=== PATIENT | male | born 1935 | race Caucasian/White ===

== ENCOUNTER 2017-01-05 11:55 | Emergency (ER) | payer MEDICARE ==
[~2017-01-05] VITALS: Ht 170.2 cm; Wt 65.8 kg
[~2017-01-05 11:55] MED LIST: METO-354 PO
[2017-01-05] MEDS ORDERED: NS IV 1000 ML 1,000 ML IV ONE (12:26)
[2017-01-05] MEDS ORDERED: KETOROLAC 30 MG/ML VIAL IVP STA (12:26)
[2017-01-05] MEDS ORDERED: ONDANSETRON 4 MG/2 ML (SDV) Z0FRAN IVP ONE (12:30)
[2017-01-05 12:33] LABS: BASOPHILS % (AUTO) 0 % (0-10); EOSINOPHILS # (AUTO) 0.2 10^3/uL (0.0-0.3); EOSINOPHILS % (AUTO) 2 % (0-10); LYMPHOCYTES # (AUTO) 1.4 X 10^3 (1.0-4.0); LYMPHOCYTES % (AUTO) 11 % (12-44); MEAN CORPUSCULAR HEMOGLOBIN 31 PG (25-34); MEAN CORPUSCULAR HGB CONC 33 G/DL (32-36); MEAN CORPUSCULAR VOLUME 94 FL (80-99); MEAN PLATELET VOLUME 9.7 FL (7.4-10.4); MONOCYTES # (AUTO) 0.9 X 10^3 (0.0-1.0); MONOCYTES % (AUTO) 7 % (0-12); NEUTROPHILS # (AUTO) 10.5 X 10^3 (1.8-7.8); NEUTROPHILS % (AUTO) 81 % (42-75); PLATELET COUNT 212 10^3/uL (130-400); RED BLOOD COUNT 4.55 10^6/uL (4.35-5.85); RED CELL DISTRIBUTION WIDTH 13.2 % (10.0-14.5)
[2017-01-05 12:47] LABS: ALANINE AMINOTRANSFERASE 9 U/L (0-55); ALBUMIN 4.3 GM/DL (3.2-4.5); ANION GAP 10 MMOL/L (5-14); ASPARTATE AMINO TRANSFERASE 17 U/L (5-34); BILIRUBIN,TOTAL 0.5 MG/DL (0.1-1.0); BLOOD UREA NITROGEN 16 MG/DL (7-18); BUN/CREATININE RATIO 16; CALCIUM 9.4 MG/DL (8.5-10.1); CARBON DIOXIDE 27 MMOL/L (21-32); CHLORIDE 103 MMOL/L (98-107); CREATININE SERUM 0.97 MG/DL (0.60-1.30); GFR ESTIMATED > 60; GLUCOSE 135 MG/DL (70-105); SODIUM 140 MMOL/L (135-145); TOTAL PROTEIN 7.4 GM/DL (6.4-8.2)
--- NOTE | 2017-01-05 12:55 | ED GI ---
General Chief Complaint: Abdominal/GI Problems Stated Complaint: ABD PAIN,CONSTIPATION Nursing Triage Note: ARRIVED VIA AMB WITH COMPLAINTS CONSTIPATION FOR X3 DAYS. Sepsis Screen: No Definite Risk Source of Information: Patient, Spouse Exam Limitations: No Limitations History of Present Illness Time Seen By Provider: 12:17 Initial Comments 81 yo male patient presents to the ED with c/o constipation x3days. reports patient has a chronic h/o constipation. Patient reports pain is worse with lying down. Last c/scope was "many years ago" per . patient reports rectal bleeding today. States he has a h/o hemorrhoids with bleeding before. Timing/Duration: 2-3 Days, Getting Worse Severity/Quality: Aching, Cramping Location: Generalized Abdomen Activities at Onset: None Modifying Factors: Worsens With Other (worse with trying to defecate) Allergies and Home Medications Allergies Coded Allergies: Penicillins (Verified Allergy, Unknown, 01/05/17) egg (Verified Allergy, Unknown, 01/05/17) Home Medications Hydrocortisone/Pramoxine 30 Gm Cream.appl, 30 GM RC UD, #1 Ref 0 apply QID to hemorroids x7-10d Prescribed by: BENY MELCHOR on 01/05/17 1450 Metoclopramide Hcl 10 Mg Tab, 1 EACH PO ACHS, #120 Ref 0 Prescribed by: AMANUEL TREVIÑO on 11/26/08 2338 Polyethylene Glycol 3350 119 Gm Powder, 17 GM PO UD, #1 Ref 0 17 g po BID x3 days, then 17 g po qhs (hold for diarrhea) Prescribed by: BENY MELCHOR on 01/05/17 1450 Review of Systems Constitutional: No chills, No fever, No malaise Respiratory: Denies Cough, Denies Orthopnea, Denies Shortness of Air, Denies SOA With Exertion Cardiovascular: Denies Chest Pain, Denies Edema, Denies Lightheadedness, Denies Syncope Gastrointestinal: See HPI, Abdomen Distended, Abdominal Pain, Constipated, Denies Nausea, Denies Poor Appetite, Denies Poor Fluid Intake, Rectal Bleeding, Denies Vomiting Genitourinary: Denies Burning, Denies Frequency, Denies Flank Pain, Denies Hematuria Musculoskeletal: No back pain Skin: no symptoms reported Psychiatric/Neurological: No Symptoms Reported All Other Systems Reviewed Negative Unless Noted: Yes (Negative excepted noted.) Past Kwxdzps-Dtxnac-Ctdble Hx Patient Social History Alcohol Use: Denies Use Recreational Drug Use: No Recent Foreign Travel: No Contact w/Someone Who Travel: No Recent Infectious Disease Expo: No Surgeries History of Surgeries: Yes Surgeries: Orthopedic Respiratory History of Respiratory Disorde: Yes Respiratory Disorders: COPD Cardiovascular History of Cardiac Disorders: Yes (LEAKY VALVE) Cardiac Disorders: Coronary Artery Disease, Hypertension Genitourinary History of Genitourinary Disor: No Gastrointestinal History of Gastrointestinal Di: Yes Gastrointestinal Disorders: Chronic Constipation, Hemorrhoids Musculoskeletal History of Musculoskeletal Dis: No Endocrine History of Endocrine Disorders: No HEENT History of HEENT Disorders: No Cancer History of Cancer: No Integumentary History of Skin or Integumenta: No Reviewed Nursing Assessment Reviewed/Agree w Nursing PMH: Yes Family Medical History Significant Family History: No Pertinent Family Hx Physical Exam Vital Signs Capillary Refill : Less Than 3 Seconds General Appearance: WD/WN, no apparent distress HEENT: PERRL/EOMI, pharynx normal Neck: supple, normal inspection Respiratory: lungs clear, normal breath sounds, no respiratory distress, no accessory muscle use Cardiovascular: normal peripheral pulses, regular rate, rhythm, no edema, no murmur Peripheral Pulses: 2+ Dorsalis Pedis (R), 2+ Left Dors-Pedis (L), 2+ Radial Pulses (R), 2+ Radial Pulses (L) Gastrointestinal: distended, guarding, No rebound, tenderness (generalized tenderness) Genital/Rectal: normal rectal tone, heme positive stool, tenderness, other (2 hemorrhoids noted without active bleeding. No bright red blood noted on the glove.) Extremities: no pedal edema, normal capillary refill Back: normal inspection, no CVA tenderness Neurologic/Psychiatric: alert, normal mood/affect, oriented x 3 Skin: normal color, warm/dry Progress/Results/Core Measures Results/Orders Lab Results Laboratory Tests Test 01/05/17 12:20 01/05/17 13:25 Range/Units White Blood Count 13.0 H 4.3-11.0 10^3/uL Red Blood Count 4.55 4.35-5.85 10^6/uL Hemoglobin 14.1 13.3-17.7 G/DL Hematocrit 43 40-54 % Mean Corpuscular Volume 94 80-99 FL Mean Corpuscular Hemoglobin 31 25-34 PG Mean Corpuscular Hemoglobin Concent 33 32-36 G/DL Red Cell Distribution Width 13.2 10.0-14.5 % Platelet Count 212 130-400 10^3/uL Mean Platelet Volume 9.7 7.4-10.4 FL Neutrophils (%) (Auto) 81 H 42-75 % Lymphocytes (%) (Auto) 11 L 12-44 % Monocytes (%) (Auto) 7 0-12 % Eosinophils (%) (Auto) 2 0-10 % Basophils (%) (Auto) 0 0-10 % Neutrophils # (Auto) 10.5 H 1.8-7.8 X 10^3 Lymphocytes # (Auto) 1.4 1.0-4.0 X 10^3 Monocytes # (Auto) 0.9 0.0-1.0 X 10^3 Eosinophils # (Auto) 0.2 0.0-0.3 10^3/uL Basophils # (Auto) 0.0 0.0-0.1 10^3/uL Sodium Level 140 135-145 MMOL/L Potassium Level 4.0 3.6-5.0 MMOL/L Chloride Level 103 98-107 MMOL/L Carbon Dioxide Level 27 21-32 MMOL/L Anion Gap 10 5-14 MMOL/L Blood Urea Nitrogen 16 7-18 MG/DL Creatinine 0.97 0.60-1.30 MG/DL Estimat Glomerular Filtration Rate > 60 BUN/Creatinine Ratio 16 Glucose Level 135 H 70-105 MG/DL Calcium Level 9.4 8.5-10.1 MG/DL Total Bilirubin 0.5 0.1-1.0 MG/DL Aspartate Amino Transf (AST/SGOT) 17 5-34 U/L Alanine Aminotransferase (ALT/SGPT) 9 0-55 U/L Alkaline Phosphatase 128 40-136 U/L Total Protein 7.4 6.4-8.2 GM/DL Albumin 4.3 3.2-4.5 GM/DL Urine Color YELLOW Urine Clarity SLIGHTLY CLOUDY Urine pH 5 5-9 Urine Specific [place] 1.020 1.016-1.022 Urine Protein NEGATIVE NEGATIVE Urine Glucose (UA) NEGATIVE NEGATIVE Urine Ketones NEGATIVE NEGATIVE Urine Nitrite NEGATIVE NEGATIVE Urine Bilirubin NEGATIVE NEGATIVE Urine Urobilinogen NORMAL NORMAL MG/DL Urine Leukocyte Esterase 1+ H NEGATIVE Urine RBC (Auto) 3+ H NEGATIVE Urine RBC NONE /HPF Urine WBC NONE /HPF Urine Squamous Epithelial Cells RARE /HPF Urine Crystals NONE /LPF Urine Bacteria NEGATIVE /HPF Urine Casts PRESENT /LPF Urine Hyaline Casts RARE /LPF Urine Mucus NEGATIVE /LPF Urine Culture Indicated NO My Orders Orders - BENY MELCHOR Saline Lock/Iv-Start (01/05/17 12:26) Fecal Occult Bedside (01/05/17 12:26) Cbc With Automated Diff (01/05/17 12:26) Comprehensive Metabolic Panel (01/05/17 12:26) Acute Abd Series (01/05/17 12:26) Ketorolac Injection (Toradol Injection) (01/05/17 12:26) Ns Iv 1000 Ml (Sodium Chloride 0.9%) (01/05/17 12:26) Ondansetron Injection (Zofran Injectio (01/05/17 12:30) Ct Abdomen/Pelvis W (01/05/17 13:44) Iohexol Injection (Omnipaque 350 Mg/Ml 1 (01/05/17 13:45) Ns (Ivpb) (Sodium Chloride 0.9% Ivpb Bag (01/05/17 13:45) Pharmacy Communication (Pharmacy Communi (01/05/17 13:45) Morphine Injection (Morphine Injection (01/05/17 15:29) Lidocaine 2% (Urojet) (Xylocaine Urojet) (01/05/17 15:30) Bisacodyl Suppository (Dulcolax Supposit (01/05/17 15:30) Ua Culture If Indicated (01/05/17 15:46) Iv Push Wire Loop Machine Operator Ed (01/05/17 ) Medications Given in ED Vital Signs/I&O Blood Pressure Mean: 112 Point of Care Testing Fecal Occult: Negative Diagnostic Imaging Diagonstic Imaging: Xray Plain Films/CT/US/NM/MRI: abdomen Comments FINDINGS: No focal airspace disease in the visible lungs. No pleural effusion or pneumothorax. Normal cardiomediastinal silhouette. Summation shadow of the patient's first ribs and degenerative changes are present in the lung apices. No free intraperitoneal air. Nonobstructive bowel gas pattern. Moderate to large amount of colonic stool is present. Degenerative changes in the lumbar spine. IMPRESSION: 1. No acute cardiopulmonary process. 2. Nonobstructive bowel gas pattern. Moderate volume of colonic stool should correlate with patient's reported constipation. Dictated on workstation # [id number] Reviewed: Reviewed by Me (radiology report reviewed by me) Diagonstic Imaging: CT Plain Films/CT/US/NM/MRI: abdomen, pelvis Comments FINDINGS: Lower chest: The lung bases are clear. No pericardial or pleural effusion. Peritoneum: No free intraperitoneal air or fluid. Liver and biliary system: The liver is normal. The gallbladder is normal. No biliary duct dilation. Spleen and Pancreas: Spleen is normal. The pancreas enhances normally without mass lesion or peripancreatic inflammatory changes. Adrenals: Normal. tract: The kidneys enhance normally without suspicious mass or obstruction. Exophytic cyst in the lower pole of the right kidney measures 4.5 x 3.6 cm. Urinary bladder is distended without wall thickening. Prostate is not enlarged. GI tract: Stomach is decompressed. No bowel obstruction. No pericolonic inflammatory changes. There is a large volume of stool throughout the colon, greatest in the rectosigmoid colon. Mild soft tissue induration within the perirectal fat can be seen with fecal impaction. Vasculature and Lymph nodes: Normal caliber aorta with extensive atherosclerotic plaquing. No abdominal or pelvic lymphadenopathy. Musculoskeletal: No concerning osseous lesion. IMPRESSION: 1. Large volume of colonic stool with a significant stool burden in the rectum. Clinical correlation for fecal impaction is advised. 2. No bowel obstruction or acute inflammatory process within the abdomen. Dictated on workstation # [id number] Reviewed: Reviewed by Me (radiology report reviewed by me) Departure Communication (Admissions) Progress Notes All laboratory findings, diagnostic study findings, and plan for discharge discussed with the patient. Discharge to home with 2 Dulcolax suppositories. Patient to use stool softeners, MiraLAX, and magnesium citrate for residual constipation. All return precautions were discussed with the patient as described in the discharge instructions of this report. Patient voices understanding and agrees with the treatment plan. Impression Impression: Primary Impression: Fecal impaction in rectum Additional Impressions: Constipation Qualified Codes: K59.01 - Slow transit constipation Bleeding hemorrhoids Rectal pain Disposition: HOME, SELF-CARE Condition: Improved Departure-Patient Inst. Decision time for Depature: 14:47 Referrals: GAMALIEL MURILLO DO NO,LOCAL PHYSICIAN (PCP) Primary Care Physician Patient Instructions: Constipation, Adult (DC) Add. Discharge Instructions: All discharge instructions reviewed with patient and/or family. Voiced understanding. Medications as instructed. Tylenol Extra Strength over-the- counter as directed for pain. Eating high fiber diet. Magnesium citrate one bottle followed by 8 ounces of fluids for severe constipation x 1 dose. Dulcolax 10 mg by mouth daily as needed for severe constipation. Drink plenty of fluids. Follow-up with your family practitioner for recheck as an outpatient. Follow-up with Dr. Murillo or the general surgeon of your choice for possible need of colonoscopy. Call for appointment time. Return to the emergency department for worsened pain, fever, abdominal swelling, vomiting, rectal bleeding, or any other concerns. Scripts Polyethylene Glycol 3350 (Miralax) 119 Gm Powder 17 GM PO UD, #1 EA 0 Refills 17 g po BID x3 days, then 17 g po qhs (hold for diarrhea) Prov: BENY MELCHOR 01/05/17 Hydrocortisone/Pramoxine (Analpram Hc 2.5% Cream) 30 Gm Cream.appl 30 GM RC UD, #1 EA 0 Refills apply QID to hemorroids x7-10d Prov: BENY MELCHOR 01/05/17 Work/School Note: [employer] BENY MELCHOR Jan 05, 2017 12:55
--- NOTE | 2017-01-05 13:21 | Diagnostic Imaging Report ---
INDICATION: Nausea and constipation. COMPARISON: None available. FINDINGS: No focal airspace disease in the visible lungs. No pleural effusion or pneumothorax. Normal cardiomediastinal silhouette. Summation shadow of the patient's first ribs and degenerative changes are present in the lung apices. No free intraperitoneal air. Nonobstructive bowel gas pattern. Moderate to large amount of colonic stool is present. Degenerative changes in the lumbar spine. IMPRESSION: 1. No acute cardiopulmonary process. 2. Nonobstructive bowel gas pattern. Moderate volume of colonic stool should correlate with patient's reported constipation. Dictated by: Dictated on workstation # [id number]
[2017-01-05] MEDS ORDERED: IOHEXOL 350 MG/ML 100 ML (OMNIPAQUE 350) VIAL IV ONE (13:45)
[2017-01-05] MEDS ORDERED: NS 100 ML (IVPB) BAG IV ONE (13:45)
--- NOTE | 2017-01-05 14:29 | Diagnostic Imaging Report ---
PROCEDURE: CT abdomen and pelvis with contrast. TECHNIQUE: Multiple contiguous axial images were obtained through the abdomen and pelvis after administration of intravenous contrast. INDICATION: Constipation and nausea. COMPARISON: Acute abdominal series of earlier same day. FINDINGS: Lower chest: The lung bases are clear. No pericardial or pleural effusion. Peritoneum: No free intraperitoneal air or fluid. Liver and biliary system: The liver is normal. The gallbladder is normal. No biliary duct dilation. Spleen and Pancreas: Spleen is normal. The pancreas enhances normally without mass lesion or peripancreatic inflammatory changes. Adrenals: Normal. tract: The kidneys enhance normally without suspicious mass or obstruction. Exophytic cyst in the lower pole of the right kidney measures 4.5 x 3.6 cm. Urinary bladder is distended without wall thickening. Prostate is not enlarged. GI tract: Stomach is decompressed. No bowel obstruction. No pericolonic inflammatory changes. There is a large volume of stool throughout the colon, greatest in the rectosigmoid colon. Mild soft tissue induration within the perirectal fat can be seen with fecal impaction. Vasculature and Lymph nodes: Normal caliber aorta with extensive atherosclerotic plaquing. No abdominal or pelvic lymphadenopathy. Musculoskeletal: No concerning osseous lesion. IMPRESSION: 1. Large volume of colonic stool with a significant stool burden in the rectum. Clinical correlation for fecal impaction is advised. 2. No bowel obstruction or acute inflammatory process within the abdomen. Dictated by: Dictated on workstation # [id number]
[2017-01-05] MEDS ORDERED: POLY119P5 PO (14:50)
[2017-01-05] MEDS ORDERED: HC A30CR RC (14:50)
[2017-01-05] MEDS ORDERED: morphine INJ 10 MG/ML 1ML (SYR OR VIAL) IVP STA (15:29)
[2017-01-05] MEDS ORDERED: LIDOCAINE UROJET 2% GEL 10 ML PKG TOP ONE (15:30)
[2017-01-05] MEDS ORDERED: BISACODYL 10 MG SUPP (DULCOLAX) PR ONE (15:30)
[2017-01-05 15:50] LABS: BILIRUBIN,URINE NEGATIVE (NEGATIVE); KETONES,URINE NEGATIVE (NEGATIVE); LEUKOCYTE ESTERASE ,URINE 1+ (NEGATIVE); NITRITE,URINE NEGATIVE (NEGATIVE); PH,URINE 5 (5-9); PROTEIN,URINE NEGATIVE (NEGATIVE); UROBILINOGEN,URINE NORMAL (NORMAL)
[2017-01-05 15:59] LABS: HYALINE CASTS, URINE RARE /LPF; SQUAMOUS EPITHELIAL CELL,UR RARE /HPF
[2017-01-05 16:22] VITALS: BP 150/71
== END 2017-01-05 16:22 | disposition home or self-care (01) ==
LOC: EDUNIT# 11:55 → ER 11:56
DX: K56.41 Fecal impaction (principal); K64.9 Unspecified hemorrhoids; I25.10 Atherosclerotic heart disease of native coronary artery without angina pectoris; I10 Essential (primary) hypertension; J44.9 Chronic obstructive pulmonary disease, unspecified
CPT/HCPCS: 36415; 74022; 74177; 80053; 81000; 85025; 96361; 96374; 96375

== ENCOUNTER → 2018-12-10 | Outpatient (CLI) | payer MEDICARE ==
[~2018-12-10] MED LIST changes: +HC A30CR RC; +POLY119P5 PO
--- NOTE | 2018-12-10 14:04 | Diagnostic Imaging Report ---
Indication: Right wrist pain for 3 days on the ulnar side. Time of exam: 1:33 PM Three views of the right wrist were obtained. There are degenerative changes of the distal radial ulnar joint. 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 There is a subchondral cyst within the lunate. There are degenerative changes at the triscaphe and first CMC joint with joint space narrowing and marginal spurring. No acute fractures are identified. Visualized metacarpals are intact. Impression: Degenerative changes. No acute bony abnormality is detected. Dictated by: Dictated on workstation # [id number]
== END ==
LOC: RAD 13:18
PROVIDERS: ATTEND Nurse Practitioner Family
DX: M19.031 Primary osteoarthritis, right wrist (principal)
CPT/HCPCS: 73110

== ENCOUNTER 2021-10-11 22:41 | Emergency (ER) | payer MEDICARE ==
[~2021-10-11] VITALS: Ht 172.7 cm; Wt 60.9 kg
--- NOTE | 2021-10-11 23:22 | ED GI ---
General Chief Complaint: Abdominal/GI Problems Stated Complaint: CONSTIPATION Nursing Triage Note: PATIENT AMBULATED TO ROOM WITH C/O OF CONSTIPATION. STATES THAT HE HAD A SMALL BM ON SATURDAY AND HAS BEEN TAKING LINZESS AND DULCOLAX WITH NO SUCCESS. Source of Information: Patient (HARD OF HEARING), Spouse History of Present Illness Date Seen by Provider: Oct 11, 2021 Time Seen by Provider: 23:09 Initial Comments PT ARRIVES VIA POV FROM HOME WITH C/O CONSTIPATION HAD SMALL BM ON Saturday10/08/21, NO BM SINCE TOOK 1 LINZESS ( FIRST TIME HE HAS EVER TAKEN IT) AND 1 DULCOLAX PILL AT 0100, AND NOTHING ELSE AT ALL FOR THIS PROBLEM SINCE THEN PT HAS CONTINUED TO EAT AND DRINK USUAL TODAY. HAS HAD A LITTLE BIT OF NAUSEA, NO VOMITING PT IS DRINKING FLUIDS AND URINATING WELL NO ABDOMINAL PAIN, JUST A LITTLE BIT OF FULLNESS NO FEVER HAS HISTORY OF SAME, WAS THIS BAD A COUPLE OF YEARS AGO DOES NOT TAKE DAILY MEDICATION FOR CONSTIPATION PCP: EVERETTE SELBY Allergies and Home Medications Allergies Coded Allergies: Penicillins (Verified Allergy, Unknown, 01/05/17) egg (Verified Allergy, Unknown, 01/05/17) Patient Home Medication List Hydrocortisone/Pramoxine (Analpram Hc 2.5% Cream) 30 Gm Cream.appl, 30 GM RC UD Prescribed by: BENY MELCHOR on 01/05/17 1450 Metoclopramide Hcl (Reglan 10 Mg Tab) 10 Mg Tab, 1 EACH PO ACHS Prescribed by: AMANUEL TREVIÑO on 11/26/08 2338 Polyethylene Glycol 3350 (Miralax) 119 Gm Powder, 17 GM PO UD Prescribed by: BENY MELCHOR on 01/05/17 1450 Past Phmrrnw-Paifvb-Gujdkv Hx Past Medical History Surgeries: Yes Orthopedic Respiratory: Yes COPD Cardiac: Yes (LEAKY VALVE) Coronary Artery Disease, Hypertension Genitourinary: No Gastrointestinal: Yes Chronic Constipation, Hemorrhoids Musculoskeletal: No Endocrine: No HEENT: No Cancer: No Integumentary: No Family Medical History No Pertinent Family Hx Physical Exam Vital Signs Vital Signs - First Documented 10/11/21 23:04 Temp 35.9 Pulse 76 Resp 16 B/P (MAP) 161/80 (107) Pulse Ox 96 O2 Delivery Room Air Capillary Refill : Less Than 3 Seconds Height/Weight/BMI Height: 5'7.00" Weight: 145lbs. oz. [id number]; 20.00 BMI Method:Stated Progress/Results/Core Measures Results/Orders My Orders Orders - LOVELY TROTTER DO Acute Abd Series (10/11/21 23:09) Vital Signs/I&O 10/11/21 23:04 Temp 35.9 Pulse 76 Resp 16 B/P (MAP) 161/80 (107) Pulse Ox 96 O2 Delivery Room Air 2 Blood Pressure Mean: 107 Departure Impression Primary Impression: Constipation Additional Impression: Fecal impaction in rectum Disposition: HOME, SELF-CARE Condition: Stable Departure-Patient Inst. Decision time for Depature: 23:55 Referrals: ADDISON CALDERON DO (PCP/Family) Primary Care Physician Patient Instructions: Fecal Impaction (DC), Constipation, Adult (DC) Add. Discharge Instructions: LOTS OF CLEAR LIQUIDS--NO FOOD UNTIL YOUR BOWELS HAVE MOVED TAKE MIRALAX 1 CAPFUL IN 8 OZ OF WATER EVERY 1-2 HOURS UNTIL YOU HAVE A BOWEL MOVEMENT, THEN TAKE MIRALAX EVERY DAY FLEET'S ENEMAS AND DULCOLAX SUPPOSITORES RECTALLY UNTIL YOU HAVE A BM FOLLOW UP WITH YOUR DR IN 1-2 DAYS IF NO BETTER All discharge instructions reviewed with patient and/or family. Voiced understanding. LOVELY TROTTER DO Oct 11, 2021 23:22
[2021-10-12 00:06] VITALS: BP 154/76
--- NOTE | 2021-10-12 06:35 | Diagnostic Imaging Report ---
INDICATION: Abdominal pain PA chest, supine and upright abdominal images are obtained. There is increased prominence of the interstitial lung markings. There are a few scattered calcified granulomas in the upper lung regions. Bowel gas pattern is unremarkable. There is a moderate amount gas present throughout the gastrointestinal tract. There is stool in the rectal vault. IMPRESSION: Questionable rectal fecal impaction. Dictated by: Dictated on workstation # [id number]
== END 2021-10-12 00:10 | disposition home or self-care (01) ==
LOC: EDUNIT# 22:41 → ER 22:44
DX: K59.09 Other constipation (principal)
CPT/HCPCS: 74022